=== PATIENT | male | born 1945 ===

== ENCOUNTER 2024-10-04 15:12 | Outpatient (CLI) | payer OTHER, SELFPAY ==
--- NOTE | 2024-10-04 09:00 | DI.RAD_ITS ---
Exam(s) XR KNEE RT 4V AP,LAT,BONIFACIO,PAT EXAM: XR KNEE RT 4V AP,LAT,BONIFACIO,PAT CLINICAL HISTORY: right knee pain. TECHNIQUE: 2D digital imaging was performed of the right knee. Four views obtained. Merchant, AP, la teral and PA tunnel views were obtained. COMPARISON: CR XR KNEE 3 VIEW RIGHT from 08/05/2024 FINDINGS: BONES: No acute fracture is present. There is again seen a small depression in the medial femoral con dyle suspicious for an osteochondral defect. On the lateral view there is a well corticated osseous fragment in the anterior joint space which may represent a loose body. Enthesophytes are seen in pat kevin and anterior tibial tuberosity. JOINTS: There is mild narrowing of the medial femoral tibial joint. There is a small joint effusion. SOFT TISSUE: Vascular calcifications are present. IMPRESSION: Stable defect in the medial femoral condyle which may represent osteochondral injury. Findings of a loose body in the anterior joint space. Small joint effusion. DATA REPOSITORY: RADIATION DOSE DELIVERED:
== END 2024-10-04 15:13 | disposition home or self-care (01) ==
LOC: DIORS 15:13
PROVIDERS: Visit Provider Physician Assistant
DX: M25.561 Pain in right knee (principal)
CPT/HCPCS: 73564